=== PATIENT | male | born 1980 | race Hispanic/Latino ===

== ENCOUNTER 2019-02-23 15:12 | Emergency (ER) | payer OTHER ==
[2019-02-23] MEDS ORDERED: TETANUS/DIPHTHERIA TOXOID [ADULT] 0.5 ML VIAL IM ONE (15:21)
== END 2019-02-23 15:48 | disposition home or self-care (01) ==
LOC: EDH 15:12
DX: S40.212A Abrasion of left shoulder, initial encounter (principal); Z72.0 Tobacco use; W54.0XXA Bitten by dog, initial encounter; Y93.89 Activity, other specified; Y92.89 Other specified places as the place of occurrence of the external cause; Y99.8 Other external cause status
CPT/HCPCS: 90471; 90714

== ENCOUNTER 2020-10-28 22:45 | Emergency (ER) | payer SELFPAY | END 2020-10-28 22:57 | disposition left against medical advice (07) | LOC: EDH 22:45 | DX: R11.2 Nausea with vomiting, unspecified (principal); F41.9 Anxiety disorder, unspecified; F32.9 Major depressive disorder, single episode, unspecified ==